=== PATIENT | male | born 1975 | race Caucasian/White ===

== ENCOUNTER 2017-12-04 03:12 | Inpatient (IN) ==
[2017-12-04] MEDS ORDERED: Haloperidol Inj 5 MG/ML Ampul IM ONE ×3 (03:16→23:45)
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
[2017-12-04 05:36] LABS: Baso % (Auto) 0.3 % (0.0-2.0); Eos % (Auto) 0.1 % (0.0-4.0); Hematocrit 46.1 % (39.0-51.0); Lymph # (Auto) 1.3 th/mm3 (1.0-4.8); Lymph % (Auto) 18.1 % (9.0-44.0); Mean Corpuscular HGB Conc 34.7 % (32.0-36.0); Mean Corpuscular Hemoglobin 34.6 pg (27.0-34.0); Mean Corpuscular Volume 99.8 fL (80.0-100.0); Mono # (Auto) 0.6 th/mm3 (0.0-0.9); Mono % (Auto) 8.7 % (0.0-8.0); Neut # (Auto) 5.1 th/mm3 (1.8-7.7); Neut % (Auto) 72.8 % (16.0-70.0); Platelet Count 126 th/mm3 (150-450); Red Blood Count 4.62 mil/mm3 (4.50-5.90); Red Cell Distribution Width 13.1 % (11.6-17.2)
[2017-12-04 05:50] LABS: Alanine Aminotransferase 30 U/L (12-78); Albumin 3.4 g/dL (3.4-5.0); Anion Gap 11 meq/L (5-15); Aspartate Aminotransferase 30 U/L (15-37); Calcium 8.6 mg/dL (8.5-10.1); Carbon Dioxide 24.6 meq/L (21.0-32.0); Chloride 110 meq/L (98-107); Glomerular Filtration Rate 70 mL/min (>89); Glucose,Random 79 mg/dL (74-106); Potassium 3.2 meq/L (3.5-5.1); Sodium 146 meq/L (136-145)
[2017-12-04 05:54] LABS: Alkaline Phosphatase 75 U/L (45-117); Blood Urea Nitrogen 16 mg/dL (7-18); Total Protein 6.7 g/dL (6.4-8.2)
[2017-12-04] MEDS ORDERED: LORazepam 1 MG Tablet PO PRN (20:08)
[2017-12-04] MEDS ORDERED: Acetaminophen 325 MG Tablet PO PRN (20:08)
[2017-12-04] MEDS ORDERED: Aluminum/Magnesium/Simethacone Susp 30 ML UDC PO PRN (20:08)
[2017-12-04] MEDS ORDERED: RUFINAMIDE PO SCH (21:00)
[2017-12-04] MEDS ORDERED: CLOBAZAM 10 MG PO SCH (21:00)
[2017-12-04] MEDS ORDERED: Haloperidol Inj 5 MG/ML Ampul ONE (23:43)
[2017-12-05] MEDS: Divalproex 500 MG ER Tablet PO SCH (08:28)
[2017-12-05] MEDS: Lacosamide 100 MG Tablet PO SCH ×3 (08:29→20:43)
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
[2017-12-06] MEDS: Divalproex 500 MG ER Tablet PO SCH (09:33)
[2017-12-06] MEDS: Lacosamide 100 MG Tablet PO SCH ×2 (09:33→20:37)
[2017-12-06 10:18] LABS: Calcium 8.8 mg/dL (8.5-10.1); Carbon Dioxide 29.7 meq/L (21.0-32.0); Potassium 3.5 meq/L (3.5-5.1)
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
[2017-12-06] MEDS: LORazepam 0.5 MG Tablet PO SCH (20:37)
--- NOTE | 2017-12-06 20:48 | P.PNPSY ---
Subjective Remarks: Patient seen for follow-up, chart reviewed. Discussion with nursing staff reported that patient no issues overnight. Patient was found sitting hospital bed watching TV stating that he had was hurting a bit at the time of repeat "better to lose weight been gaining weight" and answers very concretely to most questions with "I do not know". Patient requiring redirection at times very childlike secondary to intellectual disability. Patient says he was contacted, Nadeen Cleveland, , who stated the patient has a diagnosis of autism and intellectual deficits along with seizure disorder and apparently had developed anxiety. She states that prior to his admission there and had which she was told by his parents and that left in [place]. He wanted to know who else had and was preservative on this present time. Patient previously has prior treatment of Haldol and Ativan as well as having recently been on Risperdal and Ativan over 1 year ago after a hospitalization in [place]. Patient current outpatient mental provider is Dr. Luna. Review of Systems All other systems reviewed negative except as stated in HPI Mental Status Examination Appearance: Appropriate Consciousness: Alert Orientation: Person Motor Activity: Other (No motor abnormalities noted) Speech: Unremarkable Language: Other (Limited) Fund of Knowledge: Poor Attention and Concentration: Easily distracted Memory: Impaired Mood: Other ("not so good") Affect: Blunt, Other (Childlike) Thought Process & Associations: Other ([place]) Thought Content: Preoccupations Hallucination Type: Other (Unable to assess due to patient's current mental status) Delusion Type: Other (Unable to assess due to patient's current mental status) Insight: Poor Judgment: Poor Assessment and Plan - Assessment (1) Adjustment disorder with disturbance of conduct Code(s): F43.24 - Adjustment disorder with disturbance of conduct Status: Acute - Plan Plan: Patient continues with very concrete thought process secondary to intellectual deficits. Patient continues require direction for ADLs but noted to be eating and drinking well. Patient sister will serve as health care surrogate and guardian advocate for this admission. Patient to start risperidone 0.5 mg p.o. twice daily and Ativan 0.25 mg p.o. twice daily. Continue rest of medications. Continue to monitor mood and behavior. Discharge planning in progress. Justification for Continued Inpatient Stay: At risk of further decompensation at lower level care.
[2017-12-06] MEDS: Chlorhexidine 0.12% Oral Kit 15 ML UDC OROPHARYNG SCH (22:34)
[2017-12-07] MEDS: Divalproex 500 MG ER Tablet PO SCH (09:35)
[2017-12-07] MEDS: Lacosamide 100 MG Tablet PO SCH ×3 (09:36→22:15)
[2017-12-07] MEDS: LORazepam 0.5 MG Tablet PO SCH (09:37)
[2017-12-07] MEDS: Chlorhexidine 0.12% Oral Kit 15 ML UDC OROPHARYNG SCH ×2 (09:40→22:14)
--- NOTE | 2017-12-07 14:14 | P.PN ---
Subjective Interval history: Follow up on patient with seizure d/o, dental pain. Patient seen and examined. Patient is encountered in his room standing up watching television. He tells me he misses his family. He continues to complain of left sided dental pain. He is afebrile. Physical Exam Vital signs: Vital Signs 12/07/17 06:10 Temperature 97.0 F L Pulse Rate 64 Respiratory Rate 17 Blood Pressure 139/75 Pulse Oximetry 98 Intake & Output 12/06/17 12/07/17 12/07/17 18:59 06:59 18:59 Intake Total 960 / 960 480 / 480 480 / 480 Balance 960 / 960 480 / 480 480 / 480 Intake: Oral 960 / 960 480 / 480 480 / 480 Other: # Voids 2 0 Date of Last Bowel Movement 12/06/17 12/06/17 12/06/17 Narrative: GENERAL: WDWN male patient, in no acute distress. Awake and alert. Standing in his room watching tv. SKIN: Warm and dry. HEAD: Atraumatic. Normocephalic. EYES: Pupils equal and round. No scleral icterus. No injection or drainage. ENT: No nasal bleeding or discharge. Mucous membranes pink and moist. No obvious dental caries/abscess. Able to palpate inside of mouth and outer jaw area with no indication of pain or discomfort. NECK: Trachea midline. CARDIOVASCULAR: Regular rate and rhythm. RESPIRATORY: No accessory muscle use. Clear to auscultation. Breath sounds equal bilaterally. GASTROINTESTINAL: Abdomen soft, non-tender, nondistended. +BS. MUSCULOSKELETAL: Extremities without clubbing, cyanosis, or edema. No obvious deformities. NEUROLOGICAL: Awake and alert. No obvious cranial nerve deficits. Motor grossly within normal limits. Able to move all extremities spontaneously. Normal speech. PSYCHIATRIC: Blunt affect; insight and judgment poor. Results - Labs CBC & Chem 7: 12/04/17 05:30 12/06/17 09:42 Assessment and Plan - Plan 42-year-old male with a past medical history significant for probable autism spectrum disorder, seizure disorder and history of brain surgery who presented to the ED under Mckeon act from a long term for increased aggression and hostility. Patient has been admitted to inpatient psychiatric unit and hospitalist services have been consulted to assist with medical management. Adjustment disorder Probable autism spectrum disorder Under Mckeon act -Management per psychiatric team Hx of brain surgery Seizure disorder -Resume on home medications Depakote, Vimpat and Zonegran -Monitor for seizure activity -Seizure precautions Dental pain no obvious source on exam -continue with Peridex BID -Tylenol prn pain -monitor for improvement Hypokalemia -resolved s/p po repletion DVT prophylaxis -patient is ambulatory Discussed Condition With: patient, Dr. Kc
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
[2017-12-08] MEDS: LORazepam 0.5 MG Tablet PO SCH ×2 (06:00→18:11)
[2017-12-08] MEDS: Divalproex 500 MG ER Tablet PO SCH (08:04)
[2017-12-08] MEDS: Lacosamide 100 MG Tablet PO SCH ×2 (08:04→21:50)
[2017-12-08] MEDS: Chlorhexidine 0.12% Oral Kit 15 ML UDC OROPHARYNG SCH (08:05)
--- NOTE | 2017-12-08 13:16 | ECG ---
Date Performed: 12/07/2017 Time Performed: 19:10:46 PTAGE: 42 years EKG: Sinus rhythm WITH SHORT VA INTERVAL MODERATE T-WAVE ABNORMALITY, CONSIDER ANTERIOR ISCHEMIA ABNORMAL ECG NO PREVIOUS TRACING DOCTOR: Antony Shelton Interpretating Date/Time 12/08/2017 13:16:31
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
--- NOTE | 2017-12-08 18:08 | P.PNPSY ---
Subjective Remarks: Patient was seen and case discussed with nursing. Patient has been called today. He has not had any outbursts. Intellectual dysfunction is prominent. Behaving well on the unit Mental Status Examination Appearance: Appropriate, Disheveled Consciousness: Alert Orientation: Person Motor Activity: Other (No motor abnormalities noted) Speech: Unremarkable Language: Other (Limited) Fund of Knowledge: Poor Attention and Concentration: Easily distracted Memory: Impaired Mood: Other ("not so good") Affect: Blunt, Other (Childlike) Thought Process & Associations: Other ([place]) Thought Content: Preoccupations Hallucination Type: None Delusion Type: Other (Unable to assess due to patient's current mental status) Insight: Poor Judgment: Poor Assessment and Plan - Assessment (1) Adjustment disorder with disturbance of conduct Code(s): F43.24 - Adjustment disorder with disturbance of conduct Status: Acute - Plan Plan: Continue current treatment plan Justification for Continued Inpatient Stay: Patient would decompensate in a less restrictive setting
[2017-12-09] MEDS: Chlorhexidine 0.12% Oral Kit 15 ML UDC OROPHARYNG SCH ×3 (06:38→21:09)
[2017-12-09] MEDS: LORazepam 0.5 MG Tablet PO SCH ×3 (07:14→18:03)
[2017-12-09] MEDS: Divalproex 500 MG ER Tablet PO SCH (08:39)
[2017-12-09] MEDS: Lacosamide 100 MG Tablet PO SCH ×2 (08:39→21:09)
--- NOTE | 2017-12-09 14:01 | P.PNPSY ---
Subjective Remarks: Patient was seen and case discussed with nursing. Patient remains in good behavior on the unit. He is compliant with his medications. He is alert and oriented x2. Describes his mood today is "normal.". Mental Status Examination Appearance: Appropriate, Disheveled Consciousness: Alert Orientation: Person Motor Activity: Other (No motor abnormalities noted) Speech: Unremarkable Language: Other (Limited) Fund of Knowledge: Poor Attention and Concentration: Easily distracted Memory: Impaired Mood: Other ("not so good") Affect: Blunt, Other (Childlike) Thought Process & Associations: Other ([place]) Thought Content: Preoccupations Hallucination Type: None Delusion Type: Other (Unable to assess due to patient's current mental status) Insight: Poor Judgment: Poor Assessment and Plan - Assessment (1) Adjustment disorder with disturbance of conduct Code(s): F43.24 - Adjustment disorder with disturbance of conduct Status: Acute - Plan Plan: Continue current treatment plan Justification for Continued Inpatient Stay: Patient would decompensate in a less restrictive setting
[2017-12-10 04:53] VITALS: RESP 16
[2017-12-10] MEDS: LORazepam 0.5 MG Tablet PO SCH (05:54)
[2017-12-10] MEDS: Divalproex 500 MG ER Tablet PO SCH (08:50)
[2017-12-10] MEDS: Chlorhexidine 0.12% Oral Kit 15 ML UDC OROPHARYNG SCH ×2 (08:51→21:27)
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
--- NOTE | 2017-12-10 16:28 | P.PNPSY ---
Subjective Remarks: Patient seen for follow-up, chart reviewed. Discussion with nursing staff reported that patient was noted to be somewhat anxious morning but redirectable at times can be loud when anxious but no aggressive behavior since admission and tolerating medications well and compliant. Patient was found in day room interacting and engaging with other peers during lunch. Patient with concrete responses stating "it is better to lose weight and gained weight" which patient has always been fixated on this thought. Patient able to provide concrete answers appropriately. Patient has not had any behavioral disturbances, noted to be in good behavioral control at this time. Review of Systems All other systems reviewed negative except as stated in HPI Mental Status Examination Appearance: Appropriate Consciousness: Alert Orientation: Person Motor Activity: Other (No motor abnormalities noted) Speech: Unremarkable Language: Other (Limited) Fund of Knowledge: Poor Attention and Concentration: Easily distracted Memory: Impaired Mood: Other ("Good") Affect: Blunt, Other (Childlike) Thought Process & Associations: Other ([place]) Thought Content: Preoccupations Hallucination Type: None Delusion Type: Other (Unable to assess due to patient's current mental status) Insight: Poor Judgment: Poor Assessment and Plan - Assessment (1) Adjustment disorder with disturbance of conduct Code(s): F43.24 - Adjustment disorder with disturbance of conduct Status: Acute - Plan Plan: Patient tolerated medication treatment well, no episodes of agitation at times require redirection when anxious but no aggressive behavior. We will continue current treatment. We will continue to monitor mood and behavior. We will have treatment team attempt to reach out to family to visit patient to assess baseline with plan to have patient return back to his senior care. Discharge planning a progress. Justification for Continued Inpatient Stay: At risk of further decompensation at lower level care.
[2017-12-10] MEDS: Lacosamide 100 MG Tablet PO SCH (21:25)
[2017-12-11 06:14] VITALS: BP 122/69; PULSE 83; TEMP 97.9; O2SAT 99
[2017-12-11] MEDS: Chlorhexidine 0.12% Oral Kit 15 ML UDC OROPHARYNG SCH ×2 (08:32→14:54)
[2017-12-11] MEDS: LORazepam 0.5 MG Tablet PO SCH (08:39)
[2017-12-11] MEDS: Lacosamide 100 MG Tablet PO SCH (08:40)
[2017-12-11] MEDS: Divalproex 500 MG ER Tablet PO SCH (08:40)
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
== END 2017-12-11 18:20 | disposition home or self-care (01) ==
LOC: NEPD 03:12 → NEDA 19:56 → H4EA 22:45 → H260 12-09 17:55
PROVIDERS: ADMIT Student in an Organized Health Care Education/Training Program; ATTEND Student in an Organized Health Care Education/Training Program